=== PATIENT | female | born 1975 | race African-American/Black ===

== ENCOUNTER 2023-07-18 10:54 | Emergency (ER) | payer BC ==
[~2023-07-18] VITALS: Ht 172.7 cm; Wt 74.5 kg
[2023-07-18 11:30] VITALS: O2SAT 99
[2023-07-18] MEDS ORDERED: PHEN100C4 MT (11:31)
[2023-07-18] MEDS ORDERED: PHENYTOIN SODIUM EXTENDED 100MG CAPSULE PO ONE (12:15)
[2023-07-18 12:24] VITALS: BP 124/85; PULSE 84; RESP 16; TEMP 98.2
== END 2023-07-18 13:24 | disposition home or self-care (01) ==
LOC: ER 12:42
DX: Z76.0 Encounter for issue of repeat prescription (principal); R56.9 Unspecified convulsions
CPT/HCPCS: 36415; 80185; 99283

== ENCOUNTER 2024-08-22 16:27 | Emergency (ER) | payer MEDICAID ==
[~2024-08-22] VITALS: Ht 154.9 cm; Wt 70.0 kg
[~2024-08-22 16:27] MED LIST: PHEN100C4 MT
[2024-08-22 16:46] VITALS: TEMP 98.7; O2SAT 98
[2024-08-22] MEDS: SODIUM CHLORIDE 0.9% 1,000 ML IV ONE (17:32)
[2024-08-22 20:57] LABS: BASOPHILS % 0.4 % (0.0-2.0); EOSINOPHILS % 1.7 % (0.0-5.0); HEMATOCRIT. 40.4 % (36.0-48.0); HEMOGLOBIN. 13.4 g/dL (12.0-16.0); LYMPHOCYTES % 27.3 % (20.0-50.0); MEAN CORPUSCULAR HEMOGLOBIN 29.5 pg (28.0-32.0); MEAN CORPUSCULAR HGB CONC 33.1 g/dL (31.0-37.0); MEAN PLATELET VOLUME 7.9 fl (7.4-10.4); MONOCYTES % 9.6 % (2.0-8.0); PLATELET 195 x1000/uL (130-400); RED BLOOD CELL COUNT 4.54 mill/uL (4.2-5.4); RED CELL DISTRIBUTION WIDTH 13.6 % (11.6-14.6); WHITE BLOOD COUNT 4.8 x1000/uL (4.5-11.0)
[2024-08-22 21:06] LABS: CHLORIDE 108 mEq/L (98-107); POTASSIUM 3.9 mEq/L (3.5-5.1); SODIUM 140 mEq/L (136-145)
[2024-08-22 21:07] LABS: CALCIUM 10.3 mg/dL (8.7-10.4); CARBON DIOXIDE 26 mEq/L (21-32)
[2024-08-22 21:12] LABS: CREATININE 0.7 mg/dL (0.6-1.0); GLUCOSE 94 mg/dL (70-105); UREA NITROGEN BLOOD 8 mg/dL (9-23)
[2024-08-22 21:13] LABS: PHENYTOIN < 2.0 ug/mL (10-20)
[2024-08-22 21:14] LABS: ALANINE AMINOTRANSFERASE 15 IU/L (10-49); ALBUMIN 4.2 g/dL (3.2-4.8); ASPARTATE AMINOTRANSFERASE 14 IU/L (<34); BILIRUBIN TOTAL 0.4 mg/dL (0.1-1.0); PROTEIN TOTAL 6.7 g/dL (6.0-8.3)
[2024-08-22 21:15] LABS: BILIRUBIN DIRECT < 0.1 mg/dL (<=3.0)
[2024-08-22 21:23] LABS: HCG SCREEN NEGATIVE
[2024-08-22] MEDS ORDERED: PHEN100C4 MT (21:28)
[2024-08-22] MEDS: PHENYTOIN SODIUM 1,000 MG in SODIUM CHLORIDE 0.9% 100 ML IV ONE (22:42)
[2024-08-22 23:42] VITALS: BP 115/76; PULSE 69; RESP 12; O2SAT 99
== END 2024-08-23 00:02 | disposition home or self-care (01) ==
LOC: ER 16:27
DX: R89.2 Abnormal level of other drugs, medicaments and biological substances in specimens from other organs, systems and tissues (principal); Z79.899 Other long term (current) drug therapy; G40.409 Other generalized epilepsy and epileptic syndromes, not intractable, without status epilepticus
CPT/HCPCS: 80076; 80048; 80185; 84703; 85025; 36415; 93005; 96361; 96365; 99284; J1165; J7050; J7030; Z7610 ×2; 96360